=== PATIENT | male | born 1945 | race Caucasian/White ===

== ENCOUNTER → 2017-03-23 | Outpatient (CLI) | payer OTHER, MEDICARE | LOC: BMCIMAGING 15:29 | PROVIDERS: ATTEND Nurse Practitioner Adult Health | DX: M25.462 Effusion, left knee (principal); M25.862 Other specified joint disorders, left knee ==

== ENCOUNTER 2018-04-15 05:26 | Observation (INO) | payer OTHER, MEDICARE ==
--- NOTE | 2018-04-14 16:37 | GHP ---
DATE OF ADMISSION: 04/15/2018 HISTORY: The patient is a 73-year-old male who presents with left knee pain, swelling, stiffness, li mitations of motion, he is limping with altered gait. He has arthritis of the knee that is advanced, severe in the medial compartment. This is impacting his ability to exercise and even including acti vities of daily living. He has tried appropriate conservative measures, including medications and ex ercises to maintain strength and fitness level, he has had an arthroscopy about a year ago with sisi hatfield, chondroplasty, and some meniscal work. He has had also a viscosupplementation series. He co ntinues to have significant pain. IMAGING: X-rays show tricompartment osteoarthritis, [id number] in medial compartment. He has subc hondral sclerosis, degenerative lipping. For his advanced left knee osteoarthritis, a left total kne e arthroplasty is planned. PAST MEDICAL HISTORY: He has no current medical problems. He has had a previous left knee arthrosco py. ALLERGIES: No known drug allergies. MEDICATIONS: He is taking no prescription meds. SOCIAL HISTORY: He is a former smoker, but quit years ago. REVIEW OF SYSTEMS: Negative for cardiopulmonary disease. PHYSICAL EXAM: GENERAL: The patient is a well-developed, well-nourished male in no apparent distres s. HEAD AND NECK: Normocephalic, atraumatic. CHEST: Clear. CARDIOVASCULAR: Regular rate and rhy thm. ABDOMEN: Soft. NEUROLOGIC: He is alert and oriented x3. EXTREMITIES: The left knee shows a slight flexion contracture, he is bending to about 120 degrees. He has a small effusion. He has lulu int line tenderness, especially medially. Ligamentously appears stable. His skin and neurovascular exams intact. IMPRESSION: Left knee osteoarthritis. PLAN: Left total knee arthroplasty. Benefits and risks of surgery have been reviewed with the patie nt and include a risk of infection, damage to blood vessel or nerve, failure or loosening of the comp onents, and need for revision, blood clot in the leg or lungs, or bleeding and the need for transfusi on. He has signed his consent form and he wishes to proceed. /[id number]/MODL
[2018-04-15] MEDS ORDERED: ACETAMINOPHEN 325 MG TAB PO ONE (05:38)
[2018-04-15] MEDS ORDERED: ceFAZolin 2 GM/DEXTROSE 100 ML IV ONE (05:38)
[2018-04-15] MEDS ORDERED: GABAPENTIN 300 MG CAP PO ONE (05:38)
[2018-04-15] MEDS ORDERED: ONDANSETRON 4 MG/2 ML VIAL IVP ONE (05:38)
[2018-04-15] MEDS ORDERED: FAMOTIDINE 20 MG TAB PO ONE (05:38)
[2018-04-15] MEDS ORDERED: DEXAMETHASONE 4 MG/ML VIAL IVP ONE (05:38)
[2018-04-15] MEDS ORDERED: LIDOCAINE 1% 2 ML INJ ID PRN (05:39)
[2018-04-15] MEDS ORDERED: LR 1,000 ML IV ONE (05:39)
[2018-04-15] MEDS ORDERED: TRANEXAMIC ACID 1,000 MG in NS 100 ML IV ONE (06:00)
[2018-04-15] MEDS ORDERED: POVIDONE-IODINE 20 ML in SODIUM CL IRRIG SOLUTION 500 ML IRR ONE (06:00)
[2018-04-15] MEDS ORDERED: ROPIVACAINE 0.2% 80 MG, EPINEPHrine 0.2 MG, KETOROLAC TROMETHAMINE 30 MG in SYRINGE 0 ML IU ONE (06:00)
--- NOTE | 2018-04-15 06:12 | PDANEPAE ---
ANE History of Present Illness Left Total knee replacement. ANE Past Medical History - Cardiovascular History Hx Hypertension: No Hx Arrhythmias: No Hx Chest Pain: No Hx Coronary Artery / Peripheral Vascular Disease: No Hx CHF / Valvular Disease: No Hx Palpitations: No - Pulmonary History Hx COPD: No Hx Asthma/Reactive Airway Disease: No Hx Recent Upper Respiratory Infection: No Hx Oxygen in Use at Home: No Hx Sleep Apnea: No Sleep Apnea Screening Result - Last Documented: Negative - Neurologic History Hx Cerebrovascular Accident: No Hx Seizures: No Hx Dementia: No - Endocrine History Hx Diabetes: No Hypothyroid: No Hyperthyroid: No Obesity: no - Renal History Hx Renal Disorders: No - Liver History Hx Hepatic Disorders: No - Neurological & Psychiatric Hx Hx Neurological and Psychiatric Disorders: No - Cancer History Hx Cancer: No - Congenital Disorder History Hx Congenital Disorders: No - GI History GERD: no Hx Gastrointestinal Disorders: No - Other Health History Other Health History: none - Chronic Pain History Chronic Pain: Yes (left knee) - Surgical History Prior Surgeries: left knee scope 04/2017. tonsillectomy at 12 yo ANE Review of Systems Review of Systems: - Exercise capacity METS (RN): 4 METS ANE Patient History - Allergies Allergies/Adverse Reactions: No Known Allergies Allergy (Verified 03/18/18 10:10) - Home Medications Home Medications: NK [No Known Home Meds] 03/11/18 [Last Taken Unknown] - Anes Hx Anes Hx: no prior problems - Smoking Hx Smoking Status: Former smoker Marijuana use: No - Alcohol Use Alcohol Use: Rarely - Family Anes Hx Family Anes Hx: none Family Hx Anesthesia Complications: none ANE Labs/Vital Signs - Vital Signs Height: 180.34 cm Weight: 86.183 kg ANE Physical Exam - Airway Neck exam: decreased ROM (with extension, lateral rotation; no pain) Mallampati Score: Class 3 Mouth exam: normal dental/mouth exam - Pulmonary Pulmonary: clear to auscultation - Cardiovascular Cardiovascular: regular rate and rhythym - ASA Status ASA Status: II ANE Anesthesia Plan Anesthesia Plan: spinal Regional Anesthesia: adductor canal FNB
[2018-04-15] MEDS ORDERED: ceFAZolin 1 GM/5 ML SYR ONE (06:41)
[2018-04-15] MEDS ORDERED: MIDAZOLAM 2 MG/2 ML VIAL IVP ONE (06:55)
[2018-04-15] MEDS ORDERED: fentaNYL 100 MCG/2 ML INJ ONE (07:01)
[2018-04-15] MEDS ORDERED: PROPOFOL 200 MG/20 ML VIAL ONE ×3 (07:02→08:34)
--- NOTE | 2018-04-15 07:16 | PDHPUP ---
History & Physical Update H&P update statement: This history and physical update is based on an assessment of the patient which was completed after admission or registration (within 24 hours), but prior to the surgery/procedure. no change H&P update: no change in patient's condition since H&P completed (no change)
[2018-04-15] MEDS ORDERED: BUPIVACAINE/DEXTROSE 7.5MG/ML 2 ML SPINAL AMP SP ONE ×2 (07:21→08:05)
[2018-04-15] MEDS ORDERED: ePHEDrine SULFATE 25 MG/5 ML SYR ONE (07:43)
[2018-04-15] MEDS ORDERED: PHENYLEPHRINE HCL 100 MCG/ML SYR ONE (07:44)
[2018-04-15] MEDS ORDERED: clonIDINE 1 MG/10 ML VIAL EP ONE (08:43)
[2018-04-15] MEDS ORDERED: ROPIVACAINE HCL 150 MG/30 ML INJ ONE (08:43)
[2018-04-15] MEDS ORDERED: ONDANSETRON 4 MG/2 ML VIAL IVP PRN ×2 (08:51→09:38)
[2018-04-15] MEDS ORDERED: fentaNYL 100 MCG/2 ML INJ IVP PRN (08:51)
[2018-04-15] MEDS ORDERED: HYDROmorphONE/DILAUDID 2 MG/ML INJ IVP PRN (08:51)
[2018-04-15] MEDS ORDERED: NALOXONE HCL 0.4 MG/ML INJ IVP PRN (08:51)
[2018-04-15] MEDS ORDERED: CYCLOBENZAPRINE 10 MG TAB PO PRN (09:38)
[2018-04-15] MEDS ORDERED: TEMAZEPAM 15 MG CAP PO PRN (09:38)
[2018-04-15] MEDS ORDERED: LACTULOSE 20 GM/30 ML UDCUP PO PRN (09:38)
[2018-04-15] MEDS ORDERED: PROMETHAZINE HCL 25 MG/ML INJ IVP PRN (09:38)
[2018-04-15] MEDS ORDERED: ONDANSETRON DISINTEGRATING 4 MG TAB PO PRN (09:38)
[2018-04-15] MEDS ORDERED: oxyCODONE IR 5 MG TAB PO PRN (09:38)
[2018-04-15] MEDS ORDERED: PROMETHAZINE HCL 25 MG SUPPR PR PRN (09:38)
[2018-04-15] MEDS ORDERED: MAGNESIUM HYDROXIDE 30 ML UDCUP PO PRN (09:38)
[2018-04-15] MEDS ORDERED: POLYETHYLENE GLYCOL 3350 17 GM PKT PO PRN (09:38)
[2018-04-15] MEDS ORDERED: METOCLOPRAMIDE 10 MG/2 ML VIAL IVP PRN (09:38)
[2018-04-15] MEDS ORDERED: DIPHENOXYLATE/ATROPINE LOMOTIL 1 TAB PO PRN (09:38)
[2018-04-15] MEDS ORDERED: diphenhydrAMINE 25 MG CAP PO PRN (09:38)
[2018-04-15] MEDS ORDERED: BISACODYL 10 MG SUPP PR PRN (09:38)
[2018-04-15] MEDS ORDERED: LR 1,000 ML IV SCH (10:00)
--- NOTE | 2018-04-15 10:42 | POSTANESTH ---
Post Anesthetic Evaluation Cardiovascular Status: Normal, Stable Respiratory Status: Normal, Stable Level of Consciousness/Mental Status: Can Participate in Eval Pain Control: Adequate, Prn Tx Ordered Nausea/Vomiting Control: Adequate, Prn Tx Ordered Complications Possibly Related to Anesthesia: None Noted
--- NOTE | 2018-04-15 10:46 | GOP ---
DATE OF OPERATION: 04/15/2018 SURGEON: Naseem Darden MD CASING MACHINE OPERATOR: GIANCARLO Mcmahon, LSA. ANESTHESIOLOGIST: Dr. Azael Man PREOPERATIVE DIAGNOSIS: Left knee osteoarthritis. POSTOPERATIVE DIAGNOSIS: PROCEDURE PERFORMED: Left total knee arthroplasty. FINDINGS: SPECIMENS: Include excised bone. ESTIMATED BLOOD LOSS: Minimal. INDICATIONS: The patient is a 73-year-old male who has tricompartment osteoarthritis of the left kne e that is severe, [id number] in the medial compartment. He has tried appropriate conservative ranjana ures, total knee replacement is planned. DESCRIPTION OF PROCEDURE: The patient was taken to the operating room and a spinal anesthetic was ad ministered by Dr. Man. The patient was placed supine, received IV sedation. He received 2 g of IV Ancef, as well as tranexamic acid. A tourniquet was fit high on the left thigh and the left leg was thoroughly prepped with chlorhexidine in the usual fashion. The limb was elevated, exsanguinated, a nd tourniquet inflated to 275 mmHg. I made a longitudinal incision in the midline, used a medial parapatellar arthrotomy. I inverted the patella, measured its thickness at 21 mm. I removed 9 mm of cartilage and bone, sized the patella t o a 38, and drilled peg holes for the implant. The trial implant restored the patellar thickness and osteophytes were removed. The patella was inverted. The knee was flexed and I drilled a pilot plant technician hole in the distal femur for an intramedullary alignment aquiles, used a 5-degree valgus cut, and to incorpor ate enough bone into the cut, I used a +2 cut. I then extended the knee and used a spacer block to e nsure that I could meliton the proximal tibia for the cut later on. I then flexed the knee and I sized the femur between a 7 and an 8, and I downsized to the 7 and moved the component anteriorly. I compl eted the anterior, posterior camphor cuts, as well as the notch cuts to this bi-cruciate stabilized k nee. The trial component was a good fit and I removed any remaining osteophytes on the condyles. I then prepared the tibia. I placed appropriate retractors and used an extramedullary device. I christopher led in the rotation, the posterior slope, and the depth of cut into my cutting block and made a tibia l cut. I then sized the tibial cut at a size 6, I dialed in the rotation, marked it, and pinned the components, then completed the drill hole and cruciate punch to complete the tibial prep. All the components were removed, all the surfaces were jet lavaged with antibiotic saline. Cement wa s used for all components, size 7 femur, size 6 tibia, 38 patella, and I did trial reductions after t he cement had hardened, and I found that a 10 mm tray provided excellent range of motion, including f ull extension, appropriate rollback in flexion without any tightening, good cruciate stability. The alignment and rotation of the leg looked fine. The tourniquet was let down after 77 minutes. He received a second tranexamic acid dose. I used a B etadine and saline solution wash. I closed the arthrotomy with interrupted [id number] sutures o f 0 [place]il[place], the subcutaneous tissue with 2-0 Monocryl, and the skin with jesus. The wound was d ressed with Betadine-soaked Adaptic, 4 x 4, sterile Webril, and a long-leg OZZY stocking. There were no complications. DRAINS: No drains. COUNTS: All counts were correct and the patient was taken in stable condition to recovery. My surgical physician assistant was a medical necessity for this knee replacement. SUMMARY OF COMPONENTS: This is a [employer] knee, all components cemented. The femur is Oxinium. It is a Bi-cruciate stabilized knee, femur is a 7 tibia 6, 38 patella, 10 mm liner. /[id number]/MODL
[2018-04-15] MEDS: ACETAMINOPHEN 325 MG TAB PO SCH ×3 (11:56→23:00)
[2018-04-15] MEDS: ceFAZolin 2 GM/DEXTROSE 100 ML IV SCH ×2 (14:01→23:01)
--- NOTE | 2018-04-15 16:30 | ASMTCMCOM ---
CM Note CM Note Notes: Pt is s/p L TKA. PT has cleared. Spoke with pt - he has good support from family and will begin outpatient therapy in a week. Anticipate d/c with no CM needs. D/C Plan: Home Independent Date Signed: 04/15/2018 04:28 PM Electronically Signed By:SUPA Minaya
[2018-04-15] MEDS: ASPIRIN 81 MG CHEWABLE TAB PO SCH (22:59)
[2018-04-15] MEDS: SENNOSIDES/DOCUSATE SODIUM TAB PO SCH (22:59)
[2018-04-15] MEDS: FAMOTIDINE 20 MG TAB PO SCH (23:00)
[2018-04-16] MEDS: ACETAMINOPHEN 325 MG TAB PO SCH (06:03)
[2018-04-16 08:08] VITALS: BP 113/69
--- NOTE | 2018-04-16 08:36 | SOAPPROG ---
SOAP Progress Note Assessment/Plan: Assessment: 04/16/18 POD#1 T TKA, pain controlled, Hct 37, xray fine, has been up with PT Plan: 04/16/18 08:34 Home today, oxy, celebrex, tylenol,asa, has PT set up Objective: Vital Signs Temp Pulse Resp BP Pulse Ox 36.8 C 79 16 113/69 93 04/16/18 08:00 04/16/18 08:00 04/16/18 08:00 04/16/18 08:00 04/16/18 08:00 Laboratory Results 04/16/18 05:40 04/15/18 04/16/18 04/17/18 05:59 05:59 05:59 Intake Total 1730 Output Total 1200 Balance 530 ICD10 Worksheet Patient Problems: Problems Problem Status Onset Osteoarthritis of left knee Acute - ICD10 Problem Qualifiers (1) Osteoarthritis of left knee
[2018-04-16] MEDS: ASPIRIN 81 MG CHEWABLE TAB PO SCH (08:46)
[2018-04-16] MEDS: FAMOTIDINE 20 MG TAB PO SCH (08:47)
[2018-04-16] MEDS: SENNOSIDES/DOCUSATE SODIUM TAB PO SCH (08:47)
--- NOTE | 2018-04-16 10:52 | ASMTLACE ---
SUZI Length of stay for Answers: 2 days current admission Acuity / Level of Answers: Yes Care: Did the patient have an inpatient admission? # of Emergency department Answers: 0 visits in the last 6 months Score: 5 Date Signed: 04/16/2018 10:52 AM Electronically Signed By:SUPA Burnette
== END 2018-04-16 11:56 | disposition home or self-care (01) ==
LOC: F3N 05:26
PROVIDERS: ADMIT Orthopaedic Surgery; ATTEND Orthopaedic Surgery
PROC: 0SRD069 Replacement of Left Knee Joint with Oxidized Zirconium on Polyethylene Synthetic Substitute, Cemented, Open Approach (ICD-10-PCS; principal; 2018-04-15 07:15)
DX: M17.12 Unilateral primary osteoarthritis, left knee (principal)
CPT/HCPCS: 27447; 73560; 88311; 97116; 97161; 97165; 97530; C1713; C1776; G8978; G8979; G8980; G8987; G8988; G8989; J0171; J0690; J0735; J1100; J1885; J2250; J2370; J2405; J2704; J2795; J3010